=== PATIENT | female | born 1985 | race Caucasian/White ===

== ENCOUNTER 2017-05-02 13:06 | Emergency (ER) | payer OTHER ==
[~2017-05-02] VITALS: Ht 157.5 cm; Wt 40.6 kg
[2017-05-02] MEDS ORDERED: ZOFR4TAB3 PO (13:18)
[2017-05-02] MEDS ORDERED: PROMETHAZINE INJ 25 MG/ML VIAL (J2550) IV ONE (13:45)
[2017-05-02] MEDS ORDERED: NS 1,000 ML IV ONE (13:45)
[2017-05-02 14:21] LABS: BASO % 0.2 % (0.0-1.0); EOS # 0.1 K/mm3 (0.0-0.50); EOS % 1.2 % (0.0-3.0); LARGE UNSTAINED CELL # 0.1 K/mm3 (0.0-0.4); LYMPH # 1.1 K/mm3 (1.5-4.5); LYMPH % 16.3 % (24.0-44.0); MEAN CORPUSCULAR HEMOGLOBIN 30.7 pg (27.0-33.0); MEAN CORPUSCULAR HGB CONC 35.7 g/dl (32.0-36.5); MONO # 0.5 K/mm3 (0.0-0.8); MONO % 7.8 % (0.0-5.0); NEUTROPHILS # 4.5 K/mm3 (1.8-7.7); NEUTROPHILS % 72.5 % (36.0-66.0); PLATELET COUNT, AUTOMATED 214 k/mm3 (150-450); RED CELL DISTRIBUTION WIDTH 12.2 % (11.5-14.5); WHITE BLOOD COUNT 6.2 K/mm3 (4.0-10.0)
[2017-05-02 14:51] LABS: ALBUMIN 3.8 GM/DL (3.2-5.2); ALBUMIN/GLOBULIN RATIO 1.03 (1.00-1.93); ALKALINE PHOSPHATASE 67 U/L (45-117); AMYLASE 56 U/L (25-115); ANION GAP 7 MEQ/L (8-16); AST/SGOT 14 U/L (15-37); BILIRUBIN,DIRECT 0.1 MG/DL (0.0-0.2); BILIRUBIN,TOTAL 0.4 MG/DL (0.2-1.0); BLOOD UREA NITROGEN 7 MG/DL (7-18); CALCIUM LEVEL 9.2 MG/DL (8.5-10.1); CARBON DIOXIDE LEVEL 27 MEQ/L (21-32); CHLORIDE LEVEL 103 MEQ/L (98-107); CREATININE FOR GFR 0.65 MG/DL (0.55-1.02); GLOMERULAR FILTRATION RATE > 60.0 (>60); GLUCOSE, FASTING 95 MG/DL (70-105); POTASSIUM SERUM 3.9 MEQ/L (3.5-5.1); SODIUM LEVEL 137 MEQ/L (136-145); TOTAL PROTEIN 7.5 GM/DL (6.4-8.2)
[2017-05-02 15:16] LABS: ALT/SGPT 20 U/L (12-78)
[2017-05-02] MEDS ORDERED: NS 500 ML IV ONE (15:30)
[2017-05-02] MEDS ORDERED: CVS25TAB16 PO (16:59)
[2017-05-02] MEDS ORDERED: PROM25TA PO (16:59)
[2017-05-02] MEDS ORDERED: PYRI25TA3 PO (16:59)
[2017-05-02 17:10] VITALS: BP 93/55
[2017-05-03] MEDS ORDERED: PHEN1SUP6 PR (18:13)
[2017-05-03] MEDS ORDERED: ZOFR4TAB3 PO (18:18)
== END 2017-05-02 17:12 | disposition home or self-care (01) ==
LOC: M ED 13:06
DX: O21.0 Mild hyperemesis gravidarum (principal); Z79.899 Other long term (current) drug therapy; Z91.011 Allergy to milk products; Z91.018 Allergy to other foods

== ENCOUNTER 2017-05-03 15:02 | Emergency (ER) | payer OTHER ==
[~2017-05-03] VITALS: Ht 157.5 cm; Wt 40.0 kg
[~2017-05-03 15:02] MED LIST: CVS25TAB16 PO; PROM25TA PO; PYRI25TA3 PO; ZOFR4TAB3 PO
[2017-05-03] MEDS ORDERED: NS 1,000 ML IV ONE (15:45)
[2017-05-03 15:56] LABS: BASO % 0.3 % (0.0-1.0); EOS # 0.1 K/mm3 (0.0-0.50); EOS % 1.6 % (0.0-3.0); LARGE UNSTAINED CELL # 0.1 K/mm3 (0.0-0.4); LARGE UNSTAINED CELL % 2.1 % (0.0-4.0); LYMPH # 1.6 K/mm3 (1.5-4.5); LYMPH % 22.3 % (24.0-44.0); MEAN CORPUSCULAR HEMOGLOBIN 30.1 pg (27.0-33.0); MEAN CORPUSCULAR HGB CONC 34.9 g/dl (32.0-36.5); MEAN CORPUSCULAR VOLUME 86.2 fl (80.0-96.0); MONO # 0.5 K/mm3 (0.0-0.8); MONO % 7.1 % (0.0-5.0); NEUTROPHILS # 4.5 K/mm3 (1.8-7.7); NEUTROPHILS % 66.6 % (36.0-66.0); PLATELET COUNT, AUTOMATED 203 k/mm3 (150-450); RED CELL DISTRIBUTION WIDTH 12.3 % (11.5-14.5); WHITE BLOOD COUNT 6.7 K/mm3 (4.0-10.0)
[2017-05-03] MEDS ORDERED: MULTIVITAMIN -ADULT INJECTION 10 ML, THIAMINE INJection 100 MG, FOLIC ACID 1 MG in NS 1... IV ONE (16:00)
[2017-05-03] MEDS ORDERED: PROMETHAZINE 25 MG SUPP PR ONE (16:00)
[2017-05-03 16:22] LABS: ALBUMIN 3.7 GM/DL (3.2-5.2); ALBUMIN/GLOBULIN RATIO 1.12 (1.00-1.93); ALKALINE PHOSPHATASE 59 U/L (45-117); ALT/SGPT 20 U/L (12-78); ANION GAP 7 MEQ/L (8-16); AST/SGOT 19 U/L (15-37); BILIRUBIN,DIRECT 0.1 MG/DL (0.0-0.2); BILIRUBIN,TOTAL 0.4 MG/DL (0.2-1.0); BLOOD UREA NITROGEN 7 MG/DL (7-18); CALCIUM LEVEL 9.2 MG/DL (8.5-10.1); CARBON DIOXIDE LEVEL 25 MEQ/L (21-32); CHLORIDE LEVEL 106 MEQ/L (98-107); GLOMERULAR FILTRATION RATE > 60.0 (>60); GLUCOSE, FASTING 85 MG/DL (70-105); POTASSIUM SERUM 4.3 MEQ/L (3.5-5.1); SODIUM LEVEL 138 MEQ/L (136-145)
--- NOTE | 2017-05-03 16:28 | REP ---
First trimester obstetric ultrasound for pelvic pain, emergency room request: There are no comparison studies. The study ius performed with transabdominal ultrasound imaging. The bladder is poorly distended. There is an intrauterine gestational sac with a pole. There is cardiac activity. heart rate is 162 beats per minute. The pole crown-rump length is 1.1 cm corresponding to 7 weeks 1 day gestational age. The LI is 12/19/2017. There is no subchorionic hematoma. The maternal adnexa and cul-de-sac are unremarkable. Signed by Jorje Nuñez MD 05/03/2017 04:20 P
[2017-05-03] MEDS ORDERED: PHEN1SUP6 PR (18:13)
[2017-05-03] MEDS ORDERED: ONDANSETRON 4 MG ORAL DISINTEGRATING TAB (S0181) PO ONE (18:15)
[2017-05-03] MEDS ORDERED: ONDANSETRON 4MG/2ML VIAL (J2405) IV ONE (18:15)
[2017-05-03] MEDS ORDERED: ZOFR4TAB3 PO (18:18)
[2017-05-03 18:27] VITALS: BP 108/71
== END 2017-05-03 18:29 | disposition home or self-care (01) ==
LOC: M ED 15:02
DX: O21.0 Mild hyperemesis gravidarum (principal); Z3A.01 Less than 8 weeks gestation of pregnancy; Z79.899 Other long term (current) drug therapy; Z91.018 Allergy to other foods; Z91.011 Allergy to milk products
CPT/HCPCS: 76801; 80048; 80076; 81001; 85025; 86901; 96361; 96374; 96375; 99283; J2405; J3411

== ENCOUNTER 2017-05-05 09:39 | Inpatient (IN) | payer OTHER ==
[~2017-05-05] VITALS: Ht 157.5 cm; Wt 40.4 kg
[~2017-05-05 09:39] MED LIST changes: +PHEN1SUP6 PR
[2017-05-05 10:26] LABS: BASO % 0.4 % (0.0-1.0); EOS % 0.2 % (0.0-3.0); LARGE UNSTAINED CELL # 0.2 K/mm3 (0.0-0.4); LARGE UNSTAINED CELL % 2.3 % (0.0-4.0); LYMPH # 1.5 K/mm3 (1.5-4.5); LYMPH % 20.1 % (24.0-44.0); MEAN CORPUSCULAR HEMOGLOBIN 30.7 pg (27.0-33.0); MEAN CORPUSCULAR HGB CONC 35.8 g/dl (32.0-36.5); MEAN CORPUSCULAR VOLUME 85.8 fl (80.0-96.0); MONO # 0.4 K/mm3 (0.0-0.8); MONO % 5.1 % (0.0-5.0); NEUTROPHILS # 5.4 K/mm3 (1.8-7.7); NEUTROPHILS % 71.8 % (36.0-66.0); PLATELET COUNT, AUTOMATED 231 k/mm3 (150-450); RED CELL DISTRIBUTION WIDTH 11.7 % (11.5-14.5); WHITE BLOOD COUNT 7.6 K/mm3 (4.0-10.0)
[2017-05-05] MEDS ORDERED: TRIMETHOBENZAMIDE HCL INJ 200 MG/2 ML VIAL (J3250) IM ONE (10:30)
[2017-05-05] MEDS ORDERED: NS 1,000 ML IV ONE ×2 (10:30→14:15)
[2017-05-05 10:41] LABS: ALBUMIN 3.9 GM/DL (3.2-5.2); ALBUMIN/GLOBULIN RATIO 1.15 (1.00-1.93); ALKALINE PHOSPHATASE 62 U/L (45-117); ALT/SGPT 20 U/L (12-78); AMYLASE 115 U/L (25-115); ANION GAP 15 MEQ/L (8-16); AST/SGOT 16 U/L (15-37); BILIRUBIN,DIRECT 0.2 MG/DL (0.0-0.2); BILIRUBIN,TOTAL 0.6 MG/DL (0.2-1.0); BLOOD UREA NITROGEN 8 MG/DL (7-18); CALCIUM LEVEL 9.1 MG/DL (8.5-10.1); CARBON DIOXIDE LEVEL 16 MEQ/L (21-32); CHLORIDE LEVEL 103 MEQ/L (98-107); CREATININE FOR GFR 0.51 MG/DL (0.55-1.02); GLOMERULAR FILTRATION RATE > 60.0 (>60); GLUCOSE, FASTING 74 MG/DL (70-105); SODIUM LEVEL 134 MEQ/L (136-145); TOTAL PROTEIN 7.3 GM/DL (6.4-8.2)
[2017-05-05] MEDS ORDERED: PROCHLORPERAZINE 10 MG/2 ML VIAL (J0780) IM ONE (12:30)
[2017-05-05] MEDS ORDERED: ONDA4TAB6 PO (13:37)
[2017-05-05] MEDS ORDERED: PHEN1SUP6 PR (13:37)
[2017-05-05] MEDS ORDERED: ACETAMINOPHEN TAB 650MG DOSE (2X325MG) PO PRN (14:00)
--- NOTE | 2017-05-05 14:14 | HPEPDOC ---
Medical History and Physical Date of Admission History and Physical PRIMARY CARE PROVIDER: ATTENDING: Dr. Pina CHIEF COMPLAINT: [nausea/vomiting] HISTORY OF PRESENT ILLNESS: [32 yo F , hx of 2 miscarriages, has been in and out of the ED with nausea and vomiting, sent home on oral phenegran and zofran however has not been able to tolerate any po intake, patient returns today with NBNB vomiting, along with severe nausea, patient denies abdominal pain, no diarrhea or constipation, denies fever/chills, she reports having similar issue with previous and was admitted for 2 weeks. in the ED was noted to have Elevated Lipase in 700s which changed from prior labs ] PAST MEDICAL HISTORY: none PAST SURGICAL HISTORY: none SOCIAL HISTORY: Marital status: [, with twins nonsmoker/no ETOH or drugs]. FAMILY HISTORY: denies ALLERGIES: Please see below. REVIEW OF SYSTEMS: all 10 systems negative except for mentioned in HPI HOME MEDICATIONS: Please see below. PHYSICAL EXAMINATION: VITAL SIGNS: Vital Sign - Last 24 Hours 05/05/17 05/05/17 05/05/17 09:40 10:03 13:02 Temp 97.9 98.7 Pulse 108 94 Resp 18 18 B/P (MAP) 93/61 (72) 112/67 (82) Pulse Ox 99 99 O2 Delivery Room Air Room Air GENERAL APPEARANCE: [mild distress from nausea]. HEENT: [moist mucus membranes]. CARDIOVASCULAR: [s1 s2 tachy regular]. LUNGS: [cta]. ABDOMEN: [soft, nt nd, +BS]. EXTREMITIES: [no edema]. NEUROLOGICAL: [no focal deficits]. PSYCHIATRIC: [AAO3]. LABORATORY DATA: See below. IMAGING: ultrasound First trimester obstetric ultrasound for pelvic pain, emergency room request: There are no comparison studies. The study ius performed with transabdominal ultrasound imaging. The bladder is poorly distended. There is an intrauterine gestational sac with a pole. There is cardiac activity. heart rate is 162 beats per minute. The pole crown-rump length is 1.1 cm corresponding to 7 weeks 1 day gestational age. The LI is 12/19/2017. There is no subchorionic hematoma. The maternal adnexa and cul-de-sac are unremarkable. MICROBIOLOGY: Please see below. ASSESSMENT: [32 yo F , hx of 2 miscarriages, has been in and out of the ED with nausea and vomiting po intolerance. . 1. Hyperemesis gravidarum- start compazine IV, Zofran and Benadryl, monitor lytes, 2. acute pancreatitis elevated lipase likely due to vomiting, will aggressively hydrate given 1 L bolus in ED will start maintenance fluids, monitor UO, will obtain RUQ sono to assess for gallstones, DVT px with Lovenox Vital Signs Vital Signs Date Time Temp Pulse Resp B/P (MAP) Pulse Ox O2 Delivery O2 Flow Rate FiO2 05/05/17 13:02 98.7 94 18 112/67 (82) 99 Room Air Laboratory Data Labs 24H Laboratory Tests 2 05/05/17 10:02: White Blood Count 7.6, Red Blood Count 4.90, Hemoglobin 15.1, Hematocrit 42.0, Mean Corpuscular Volume 85.8, Mean Corpuscular Hemoglobin 30.7, Mean Corpuscular Hemoglobin Concent 35.8, Red Cell Distribution Width 11.7, Platelet Count 231, Neutrophils (%) (Auto) 71.8H, Lymphocytes (%) (Auto) 20.1L, Monocytes (%) (Auto) 5.1H, Eosinophils (%) (Auto) 0.2, Basophils (%) (Auto) 0.4 , Neutrophils # (Auto) 5.4, Lymphocytes # (Auto) 1.5, Monocytes # (Auto) 0.4, Eosinophils # (Auto) 0.0, Basophils # (Auto) 0.0, Large Unclassified Cells % 2.3 , Large Unclassified Cells # 0.2, Anion Gap 15, Glomerular Filtration Rate > 60.0, Calcium Level 9.1, Aspartate Amino Transf (AST/SGOT) 16, Alanine Aminotransferase (ALT/SGPT) 20, Alkaline Phosphatase 62, Total Bilirubin 0.6, Direct Bilirubin 0.2, Total Protein 7.3, Albumin 3.9, Albumin/Globulin Ratio 1.15, Amylase Level 115, Lipase 710H 05/05/17 11:23: Urine Appearance CLEAR, Urine Color YELLOW, Urine pH 6.0, Urine Specific Osborne 1.025, Urine Protein NEGATIVE, Urine Glucose (UA) NEGATIVE, Urine Ketones 2+H, Urine Urobilinogen 0.2, Urine Bilirubin NEGATIVE, Urine Leukocyte Esterase NEGATIVE, Urine Blood NEGATIVE, Urine Nitrite NEGATIVE, Urine WBC (Auto ) 3, Urine RBC (Auto) 1, Urine Hyaline Casts (Auto) 0, Urine Bacteria (Auto) NEGATIVE, Urine Squamous Epithelial Cells 5, Urine Mucus (Auto) SMALL, Urine Sperm (Auto) CBC/BMP Laboratory Tests 05/05/17 10:02 Red Blood Count 4.90, Mean Corpuscular Volume 85.8, Mean Corpuscular Hemoglobin 30.7, Mean Corpuscular Hemoglobin Concent 35.8, Red Cell Distribution Width 11.7 , Neutrophils (%) (Auto) 71.8 H, Lymphocytes (%) (Auto) 20.1 L, Monocytes (%) ( Auto) 5.1 H, Eosinophils (%) (Auto) 0.2, Basophils (%) (Auto) 0.4, Neutrophils # (Auto) 5.4, Lymphocytes # (Auto) 1.5, Monocytes # (Auto) 0.4, Eosinophils # ( Auto) 0.0, Basophils # (Auto) 0.0 Microbiology Microbiology 05/05/17 Urine Culture, Received Pending Home Medications Scheduled PRN Ondansetron (Ondansetron Odt) 4 Mg Tab, 4 MG PO Q4H PRN for NAUSEA OR VOMITING Promethazine HCl (Phenergan) 25 Mg Sup, 25 MG OH Q8H PRN for NAUSEA OR VOMITING Allergies Coded Allergies: Metoclopramide (Verified Allergy, Intermediate, respiratory, 05/02/17) Gluten Flour (Unverified Allergy, Unknown, 05/05/17) Lactose (Unverified Allergy, Unknown, 05/05/17) CLIFFORD PINA MD May 05, 2017 14:14
[2017-05-05 15:00] VITALS: BP 102/62
[2017-05-05] MEDS: diphenhydrAMINE INJ 50MG/ML VIAL (J1200) IV PRN ×2 (16:35→22:59)
[2017-05-05] MEDS: D5W/0.9% SODIUM CHLORIDE 1,000 ML IV SCH (16:36)
[2017-05-05] MEDS: ONDANSETRON 4MG/2ML VIAL (J2405) IV PRN (18:06)
[2017-05-05 20:00] VITALS: BP 113/69
--- NOTE | 2017-05-05 20:14 | REP ---
ABDOMINAL ULTRASOUND: Real-time sonographic evaluation of the abdomen is performed. The gallbladder demonstrates no evidence of intraluminal sludge or calculi, wall thickening or pericholecystic fluid. There is no intrahepatic or extrahepatic biliary dilatation, common bile duct measuring 3 mm in diameter. Liver and pancreas demonstrate homogenous echotexture with no gross mass. Spleen is normal in size with intrinsic abnormality measuring 9.7 cm in length. The kidneys are normal in size and echotexture, right kidney measuring 10.2 x 4.3 x 3.4 cm and left kidney 10.6 x 4.8 x 3.9 cm. There is a small extrarenal pelvis on the left without hydronephrosis, renal mass or nephrolithiasis. Abdominal aorta is normal in caliber, maximum AP diameter approximately 1.9 cm, mid-aspect 1.4 cm and distally 0.8 cm just above the bifurcation. No ascites is seen. IMPRESSION: Negative abdominal ultrasound as discussed above. Signed by Jorje Vegas MD 05/06/2017 01:05 P
[2017-05-05] MEDS: PROCHLORPERAZINE 10 MG/2 ML VIAL (J0780) IV PRN (21:22)
[2017-05-06] VITALS: BP 100/59
[2017-05-06] MEDS: D5W/0.9% SODIUM CHLORIDE 1,000 ML IV SCH ×4 (00:49→23:16)
[2017-05-06] MEDS: ONDANSETRON 4MG/2ML VIAL (J2405) IV PRN ×4 (00:55→23:16)
[2017-05-06] MEDS: PROCHLORPERAZINE 10 MG/2 ML VIAL (J0780) IV PRN ×2 (06:33→16:14)
[2017-05-06 07:22] LABS: ALBUMIN 2.6 GM/DL (3.2-5.2); ALKALINE PHOSPHATASE 43 U/L (45-117); ALT/SGPT 15 U/L (12-78); ANION GAP 7 MEQ/L (8-16); AST/SGOT 10 U/L (15-37); BILIRUBIN,TOTAL 0.3 MG/DL (0.2-1.0); BLOOD UREA NITROGEN 2 MG/DL (7-18); CARBON DIOXIDE LEVEL 20 MEQ/L (21-32); CHLORIDE LEVEL 114 MEQ/L (98-107); CREATININE FOR GFR 0.35 MG/DL (0.55-1.02); GLOMERULAR FILTRATION RATE > 60.0 (>60); GLUCOSE, FASTING 107 MG/DL (70-105); MAGNESIUM LEVEL 1.7 MG/DL (1.8-2.4); POTASSIUM SERUM 3.3 MEQ/L (3.5-5.1); SODIUM LEVEL 141 MEQ/L (136-145); TOTAL PROTEIN 5.5 GM/DL (6.4-8.2)
[2017-05-06 08:00] VITALS: BP 101/56
[2017-05-06] MEDS: ENOXAPARIN 30 MG/0.3 ML SYR (J1650) SC SCH (09:05)
[2017-05-06 16:00] VITALS: BP 102/58
[2017-05-06 20:00] VITALS: BP 109/70
[2017-05-06] MEDS: diphenhydrAMINE INJ 50MG/ML VIAL (J1200) IV PRN (21:34)
[2017-05-07] VITALS: BP 97/60
[2017-05-07] MEDS: PROCHLORPERAZINE 10 MG/2 ML VIAL (J0780) IV PRN ×2 (00:30→08:52)
[2017-05-07] MEDS: D5W/0.9% SODIUM CHLORIDE 1,000 ML IV SCH (06:16)
[2017-05-07] MEDS: ONDANSETRON 4MG/2ML VIAL (J2405) IV PRN (06:17)
[2017-05-07 07:53] LABS: ALBUMIN 2.5 GM/DL (3.2-5.2); ALKALINE PHOSPHATASE 39 U/L (45-117); ALT/SGPT 14 U/L (12-78); ANION GAP 7 MEQ/L (8-16); AST/SGOT 7 U/L (15-37); BILIRUBIN,TOTAL 0.4 MG/DL (0.2-1.0); BLOOD UREA NITROGEN 2 MG/DL (7-18); CALCIUM LEVEL 7.6 MG/DL (8.5-10.1); CARBON DIOXIDE LEVEL 24 MEQ/L (21-32); CHLORIDE LEVEL 108 MEQ/L (98-107); CREATININE FOR GFR 0.33 MG/DL (0.55-1.02); GLOMERULAR FILTRATION RATE > 60.0 (>60); GLUCOSE, FASTING 93 MG/DL (70-105); MAGNESIUM LEVEL 1.8 MG/DL (1.8-2.4); POTASSIUM SERUM 3.2 MEQ/L (3.5-5.1); SODIUM LEVEL 139 MEQ/L (136-145)
[2017-05-07 08:00] VITALS: BP 103/67
[2017-05-07] MEDS: ENOXAPARIN 30 MG/0.3 ML SYR (J1650) SC SCH (08:13)
[2017-05-07] MEDS ORDERED: POTASSIUM CHLORIDE INJ 40 MEQ in D5W/0.9% SODIUM CHLORIDE 1,000 ML IV SCH (09:00)
[2017-05-07] MEDS ORDERED: PROC5TA PO (10:31)
[2017-05-07] MEDS: KCL 10MEQ IN 100ML SWI (KRUN) 10 MEQ in APPROPRIATE DILUENT 1 EA IV SCH ×4 (10:43→11:50)
[2017-05-07] MEDS ORDERED: PROCHLORPERAZINE 5 MG TAB (S0183) PO SCH (12:00)
[2017-05-07] MEDS ORDERED: ONDANSETRON 4 MG TAB (S0181) PO SCH (12:00)
--- NOTE | 2017-05-09 17:19 | DSES ---
DATE OF ADMISSION: 05/05/2017 DATE OF DISCHARGE: 05/07/2017 PRIMARY CARE PROVIDER: Thomasdorota Goins DISCHARGE DIAGNOSES: Hyperemesis gravidarum. Elevated lipase possibly due to excessive vomiting. Gastritis/duodenitis. DISCHARGE MEDICATIONS: - Prochlorperazine 5 mg by mouth before food - Continue on Odansetron 4 mg by mouth every 4 hours as needed nausea or vomiting HOSPITAL COURSE: This is a 32-year-old female who is 8 weeks presented to the hospital with intractable nausea and vomiting. The patient has been taking Phenergan and Zofran at home without any relief. The patient has been unable to keep much food down. She found to have elevated lipase and was admitted for hyperemesis gravidarum, possible pancreatitis. The patient had an ultrasound of the abdomen done which did not show any gallbladder abnormality or biliary duct abnormality. Did not show any pancreatic abnormality. It was felt that the elevated lipase was possibly due to excessive vomiting and possibly some gastritis or duodenitis associated. The patient was started on Compazine and Zofran was continued. The patient responded well to Compazine with resolution of her vomiting and nausea. On the day of discharge, the patient had stable vitals. Did not have any complaints and was functioning at her baseline. PHYSICAL EXAMINATION: VITAL SIGNS: Temperature 98.6, pulse 75, respiratory rate 18, blood pressure 103/67, pulse oximetry 97% on room air. GENERAL: The patient awake, alert, oriented times three. Sitting up in bed, in no acute distress. HEENT: Normocephalic, atraumatic. Moist mucous membranes. Anicteric eyes. CHEST: Clear to auscultation. CARDIOVASCULAR: S1, S2, regular. No rub, murmur or gallop. ABDOMEN: Soft, nontender. Bowel sounds present. EXTREMITIES: No edema. LABORATORY DATA: WBC 7.6, hemoglobin 15.1, platelet 231. Sodium 139, potassium 3.2, replaced. Chloride 108, bicarbonate 24, BUN 2, creatinine 0.3. Glucose 93, calcium 10.6, magnesium 1.8. Lipase 1265. Urinalysis: Clean. DISPOSITION: The patient is discharged home in stable condition. DISCHARGE INSTRUCTIONS: The patient to followup with primary care provider within a week. The patient advised to make an appointment with her Ob-Gynecology at the earliest. Regular diet. Activity as tolerated.
== END 2017-05-07 14:43 | disposition home or self-care (01) | DRG 781 ==
LOC: M ED 10:02 → M ED INP 13:54 → M PED 14:55
PROVIDERS: ADMIT Internal Medicine; ATTEND Internal Medicine
DX: O21.0 Mild hyperemesis gravidarum (principal); K85.90 Acute pancreatitis without necrosis or infection, unspecified; O26.611 Liver and biliary tract disorders in pregnancy, first trimester; Z88.8 Allergy status to other drugs, medicaments and biological substances; Z79.899 Other long term (current) drug therapy

== ENCOUNTER 2017-05-08 19:42 | Emergency (ER) | payer OTHER ==
[~2017-05-08] VITALS: Ht 157.5 cm; Wt 41.3 kg
[~2017-05-08 19:42] MED LIST changes: +ONDA4TAB6 PO; +PROC5TA PO
[2017-05-08] MEDS ORDERED: diphenhydrAMINE INJ 50MG/ML VIAL (J1200) IV STA (19:58)
[2017-05-08 20:36] VITALS: BP 107/66
== END 2017-05-08 20:38 | disposition home or self-care (01) ==
LOC: M ED 19:42
DX: G24.02 Drug induced acute dystonia (principal); Z3A.00 Weeks of gestation of pregnancy not specified; Z91.011 Allergy to milk products; Z91.018 Allergy to other foods
CPT/HCPCS: 96374; 99283; J1200

== ENCOUNTER 2017-05-09 14:44 | Inpatient (IN) | payer OTHER ==
[~2017-05-09] VITALS: Ht 157.5 cm; Wt 41.1 kg
[2017-05-09 15:59] LABS: MEAN CORPUSCULAR HGB CONC 34.9 g/dl (32.0-36.5); MEAN CORPUSCULAR VOLUME 85.9 fl (80.0-96.0); RED CELL DISTRIBUTION WIDTH 12.4 % (11.5-14.5); WHITE BLOOD COUNT 8.7 K/mm3 (4.0-10.0)
[2017-05-09] MEDS: PYRIDOXINE 50 MG TAB PO SCH ×2 (16:00→21:00)
[2017-05-09 16:01] VITALS: BP 103/70
[2017-05-09 16:26] LABS: ALBUMIN 3.9 GM/DL (3.2-5.2); ALBUMIN/GLOBULIN RATIO 1.11 (1.00-1.93); ALKALINE PHOSPHATASE 58 U/L (45-117); ALT/SGPT 19 U/L (12-78); ANION GAP 9 MEQ/L (8-16); AST/SGOT 11 U/L (15-37); BILIRUBIN,TOTAL 0.4 MG/DL (0.2-1.0); BLOOD UREA NITROGEN 5 MG/DL (7-18); CALCIUM LEVEL 9.5 MG/DL (8.5-10.1); CARBON DIOXIDE LEVEL 26 MEQ/L (21-32); CHLORIDE LEVEL 104 MEQ/L (98-107); CREATININE FOR GFR 0.47 MG/DL (0.55-1.02); GLOMERULAR FILTRATION RATE > 60.0 (>60); GLUCOSE, FASTING 85 MG/DL (70-105); POTASSIUM SERUM 3.8 MEQ/L (3.5-5.1); SODIUM LEVEL 139 MEQ/L (136-145); TOTAL PROTEIN 7.4 GM/DL (6.4-8.2)
[2017-05-09] MEDS: ONDANSETRON 4MG/2ML VIAL (J2405) IV SCH ×2 (16:52→23:12)
[2017-05-09] MEDS: PROMETHAZINE 12.5 MG SUPP PR SCH ×2 (16:53→21:53)
--- NOTE | 2017-05-09 17:04 | HPEPDOC ---
Medical History and Physical Date of Admission May 09, 2017 at 15:21 History and Physical ATTENDING: Jorje Gil MD CHIEF COMPLAINT: hyperemesis gravidarum HISTORY OF PRESENT ILLNESS: 32 yo presented to clinic for f/u from allergic reaction in ED. She was d/c from the hospital on Saturday after 3 days as an in-patient for hyperemesis under another practice. She has been unable to keep any food or fluid down. PAST MEDICAL HISTORY: DENIES PAST SURGICAL HISTORY: C-S SOCIAL HISTORY: Marital status: Children: 2- twin 2 yo Employment: [employer] Tobacco use:denies ETOH: denies Illicit drug use: denies IV drug use: none Other relevant social factors: Spouse is AD. There is no support system here. Mother is coming to in 10 days to help with her children ALLERGIES: Please see below. REVIEW OF SYSTEMS: CONSTITUTIONAL: + n/v CARDIOVASCULAR: no hx RESPIRATORY: no hx GASTROINTESTINAL: n/v GENITOURINARY: no urinary sx SKIN: no sx PSYCHIATRIC: no sx HOME MEDICATIONS: zofran PHYSICAL EXAMINATION: VITAL SIGNS: WNL, afebrile GENERAL APPEARANCE: . HEENT: none CARDIOVASCULAR: RRR, no m/r/g LUNGS: CTA ABDOMEN: BS active x 4, abdomen soft, non-tender to palpation LABORATORY DATA: See below. ASSESSMENT: 32 yo with hyperemesis gravidarum . PLAN: Admit and orient, IV hydration, IV zofran, [place] phenergan, clear liquid diet, advance to regular diet Vital Signs Vital Signs Date Time Temp Pulse Resp B/P (MAP) Pulse Ox O2 Delivery O2 Flow Rate FiO2 05/09/17 16:01 97.7 65 16 103/70 (81) Laboratory Data Labs 24H Laboratory Tests 2 05/09/17 15:46: Anion Gap 9, Glomerular Filtration Rate > 60.0, Blood Urea Nitrogen 5#L, Creatinine 0.47L, Sodium Level 139, Potassium Level 3.8, Chloride Level 104, Carbon Dioxide Level 26, Calcium Level 9.5#, Aspartate Amino Transf (AST/SGOT) 11L, Alanine Aminotransferase (ALT/SGPT) 19, Alkaline Phosphatase 58, Total Bilirubin 0.4, Total Protein 7.4#, Albumin 3.9#, Albumin/Globulin Ratio 1.11 CBC/BMP Laboratory Tests 05/09/17 15:46 Red Blood Count 4.60, Mean Corpuscular Volume 85.9, Mean Corpuscular Hemoglobin 30.0, Mean Corpuscular Hemoglobin Concent 34.9, Red Cell Distribution Width 12.4 , Calcium Level 9.5 #, Aspartate Amino Transf (AST/SGOT) 11 L, Alanine Aminotransferase (ALT/SGPT) 19, Alkaline Phosphatase 58, Total Bilirubin 0.4, Total Protein 7.4 #, Albumin 3.9 # Home Medications Scheduled Prochlorperazine (Prochlorperazine Maleate) 5 Mg Tab, 5 MG PO AC Scheduled PRN Ondansetron (Ondansetron Odt) 4 Mg Tab, 4 MG PO Q4H PRN for NAUSEA OR VOMITING Allergies Coded Allergies: Metoclopramide (Verified Allergy, Intermediate, respiratory, 05/02/17) Gluten Flour (Verified Allergy, Unknown, 05/08/17) Lactose (Verified Allergy, Unknown, 05/08/17) TOM BRANTLEY CNM May 09, 2017 17:04
[2017-05-09] MEDS: D5W/LR 1,000 ML IV SCH ×2 (17:07→23:12)
[2017-05-09] MEDS: MULTIVITAMIN -ADULT INJECTION 10 ML, THIAMINE INJection 100 MG, FOLIC ACID 1 MG in NS 1... IV SCH (17:07)
[2017-05-09 18:01] VITALS: BP 103/66
[2017-05-09 22:00] VITALS: BP 112/69
[2017-05-10] MEDS: PROMETHAZINE 12.5 MG SUPP PR SCH ×2 (03:57→09:20)
[2017-05-10] MEDS: D5W/LR 1,000 ML IV SCH ×2 (04:00→15:12)
[2017-05-10 05:51] VITALS: BP 92/53
[2017-05-10] MEDS: ONDANSETRON 4MG/2ML VIAL (J2405) IV SCH ×2 (06:38→15:00)
--- NOTE | 2017-05-10 06:58 | IPNPDOC ---
Text Note Date of Service The patient was seen on 05/10/17. NOTE 32 y/o at ~7 wks gestation with bounce back admission for hyperemesis after d/c 3 days ago, unable to tolerate any food or fluid at home. Significant wt loss and malaise noted. States threw up the jello and broth she ingested yest early evening, then dry-heaved and threw up 6-7 x overnight. This AM has kept down a jello cup down for 1 hr thus far. PHYSICAL EXAMINATION: VITAL SIGNS: WNL, afebrile GENERAL APPEARANCE: Slightly better than yest afternoon HEENT: none Mucous membranes: Improved CARDIOVASCULAR: RRR, no m/r/g LUNGS: CTAB ABDOMEN: BS active x 4, abdomen soft, non-tender to palpation LABORATORY DATA: See below 1600 notable labs yesterday: HCT 39.6, Plt 239, WBC 8.7 K 3.8 Ca 9.5 Nl LFT's and Nl albumin UA neg except for 2+ ketones ASSESSMENT: 32 yo with hyperemesis gravidarum PLAN: IV hydration with D5LR 125/hr, daily Banana Bag, IV zofran which we will hopefully transition to PO Zofran, [place] phenergan here and at home, clear liquid diet with plan to advance hopefully slowly to regular diet. Needs to be discharged by SUN. to berry picker d/c meds at [facility] today (not open on weekend). SBAR to Dr Yanez at 0730. Sessions Criss BUCKLEY, I+O Criss THURSTON, I+O Laboratory Tests 05/09/17 15:46 Red Blood Count 4.60, Mean Corpuscular Volume 85.9, Mean Corpuscular Hemoglobin 30.0, Mean Corpuscular Hemoglobin Concent 34.9, Red Cell Distribution Width 12.4 , Calcium Level 9.5 #, Aspartate Amino Transf (AST/SGOT) 11 L, Alanine Aminotransferase (ALT/SGPT) 19, Alkaline Phosphatase 58, Total Bilirubin 0.4, Total Protein 7.4 #, Albumin 3.9 # Vital Signs Date Time Temp Pulse Resp B/P (MAP) Pulse Ox O2 Delivery O2 Flow Rate FiO2 05/10/17 05:51 99.2 62 16 92/53 (66) I&O- Last 24 Hours up to 6 AM 05/10/17 06:00 Intake Total 2499 ml Output Total 900 ml Balance 1599 ml SESSIONS,LG Carbajal MD May 10, 2017 06:58
[2017-05-10 07:05] LABS: ALKALINE PHOSPHATASE 38 U/L (45-117); ALT/SGPT 12 U/L (12-78); ANION GAP 11 MEQ/L (8-16); AST/SGOT 6 U/L (15-37); BILIRUBIN,TOTAL 0.4 MG/DL (0.2-1.0); BLOOD UREA NITROGEN 3 MG/DL (7-18); CALCIUM LEVEL 8.1 MG/DL (8.5-10.1); CARBON DIOXIDE LEVEL 25 MEQ/L (21-32); CHLORIDE LEVEL 106 MEQ/L (98-107); CREATININE FOR GFR 0.35 MG/DL (0.55-1.02); GLOMERULAR FILTRATION RATE > 60.0 (>60); GLUCOSE, FASTING 83 MG/DL (70-105); POTASSIUM SERUM 3.4 MEQ/L (3.5-5.1); SODIUM LEVEL 142 MEQ/L (136-145)
[2017-05-10 07:22] LABS: ALBUMIN 2.7 GM/DL (3.2-5.2); TOTAL PROTEIN 5.4 GM/DL (6.4-8.2)
[2017-05-10] MEDS ORDERED: THIAMINE HCL 200 MG/2 ML VIAL (J3411) IV SCH (09:00)
[2017-05-10] MEDS: PYRIDOXINE 50 MG TAB PO SCH ×4 (09:20→21:21)
[2017-05-10 14:19] VITALS: BP 108/56
[2017-05-10] MEDS: PROMETHAZINE 25 MG SUPP PR SCH ×2 (16:00→21:21)
[2017-05-10] MEDS: MULTIVITAMIN -ADULT INJECTION 10 ML, THIAMINE INJection 100 MG, FOLIC ACID 1 MG in NS 1... IV SCH (17:00)
[2017-05-11] MEDS: ONDANSETRON 4MG/2ML VIAL (J2405) IV SCH ×4 (00:13→22:14)
[2017-05-11 02:00] VITALS: BP_SYST 56; BP_SYST 95; BP_DIAS 56
[2017-05-11] MEDS: D5W/LR 1,000 ML IV SCH ×3 (04:13→12:16)
[2017-05-11] MEDS: PROMETHAZINE 25 MG SUPP PR SCH ×4 (04:13→22:14)
[2017-05-11 06:00] VITALS: BP 94/55
[2017-05-11 06:47] LABS: ALBUMIN 2.7 GM/DL (3.2-5.2); ALBUMIN/GLOBULIN RATIO 1.04 (1.00-1.93); ALKALINE PHOSPHATASE 41 U/L (45-117); ALT/SGPT 15 U/L (12-78); ANION GAP 9 MEQ/L (8-16); AST/SGOT 9 U/L (15-37); BILIRUBIN,TOTAL 0.5 MG/DL (0.2-1.0); BLOOD UREA NITROGEN 2 MG/DL (7-18); CALCIUM LEVEL 8.2 MG/DL (8.5-10.1); CARBON DIOXIDE LEVEL 24 MEQ/L (21-32); CHLORIDE LEVEL 107 MEQ/L (98-107); CREATININE FOR GFR 0.31 MG/DL (0.55-1.02); GLOMERULAR FILTRATION RATE > 60.0 (>60); GLUCOSE, FASTING 89 MG/DL (70-105); POTASSIUM SERUM 3.5 MEQ/L (3.5-5.1); SODIUM LEVEL 140 MEQ/L (136-145); TOTAL PROTEIN 5.3 GM/DL (6.4-8.2)
[2017-05-11] MEDS: PYRIDOXINE 50 MG TAB PO SCH ×3 (09:00→21:00)
[2017-05-11 14:34] VITALS: BP 122/56
[2017-05-11] MEDS: MULTIVITAMIN -ADULT INJECTION 10 ML, THIAMINE INJection 100 MG, FOLIC ACID 1 MG in NS 1... IV SCH (16:59)
[2017-05-11] MEDS ORDERED: KCL 10MEQ IN D5/0.45NS 1000ML 1,000 ML IV ONE (21:00)
[2017-05-11 22:00] VITALS: BP 112/73
[2017-05-12] MEDS ORDERED: KCL 10MEQ IN D5/0.45NS 1000ML 1,000 ML IV ONE
[2017-05-12] MEDS: D5W/LR 1,000 ML IV SCH ×4 (04:28→21:51)
[2017-05-12] MEDS: PROMETHAZINE 25 MG SUPP PR SCH ×2 (04:28→09:21)
[2017-05-12 06:00] VITALS: BP 109/61
[2017-05-12] MEDS: ONDANSETRON 4MG/2ML VIAL (J2405) IV SCH ×3 (06:19→19:55)
[2017-05-12 06:48] LABS: ALBUMIN 2.7 GM/DL (3.2-5.2); ALKALINE PHOSPHATASE 38 U/L (45-117); ALT/SGPT 35 U/L (12-78); ANION GAP 9 MEQ/L (8-16); AST/SGOT 25 U/L (15-37); BILIRUBIN,TOTAL 0.4 MG/DL (0.2-1.0); BLOOD UREA NITROGEN 1 MG/DL (7-18); CALCIUM LEVEL 8.3 MG/DL (8.5-10.1); CARBON DIOXIDE LEVEL 24 MEQ/L (21-32); CHLORIDE LEVEL 107 MEQ/L (98-107); CREATININE FOR GFR 0.29 MG/DL (0.55-1.02); GLOMERULAR FILTRATION RATE > 60.0 (>60); GLUCOSE, FASTING 91 MG/DL (70-105); POTASSIUM SERUM 3.3 MEQ/L (3.5-5.1); SODIUM LEVEL 140 MEQ/L (136-145); TOTAL PROTEIN 5.4 GM/DL (6.4-8.2)
[2017-05-12] MEDS: PYRIDOXINE 50 MG TAB PO SCH ×3 (07:40→21:08)
[2017-05-12] MEDS ORDERED: PANTOPRAZOLE 40MG INJ (PROTONIX) (C9113) IV SCH (09:00)
[2017-05-12] MEDS: PANTOPRAZOLE SODIUM IV SCH ×2 (09:22→21:20)
[2017-05-12] MEDS: SCOPOLAMINE 1.5 MG TRANSDERMAL TOP SCH (09:22)
[2017-05-12] MEDS: NS MINI IV SCH ×2 (09:22→21:20)
[2017-05-12 14:00] VITALS: BP 114/72
--- NOTE | 2017-05-12 15:17 | IPN ---
DATE: 05/12/2017 This lady is a hyperemesis gravidarum who is a significant risk for dehydration, electrolyte imbalance. She has failed Zofran. She has failed the rectal suppositories and Phenergan. She is now onto scopolamine patches and Protonix for her gastrointestinal (GI) upset and she is now presenting with ulcers in her mouth from continued emesis. She is also running IV fluids with vitamin B. She is unable to take to the B6 orally as she just throws it up. Presently today, her temperature is 99.0, pulse is 66, respirations are 20 and blood pressure is 109/61. Her hemoglobin is 13.8, hematocrit 39.6, and platelets are 239. Her chemistry today: Her anion gap is 9, it was down from 11. Her potassium was 3.3, it is still low, although she is receiving 10 mEq of potassium. All of her chemistries are low or within normal limits. Blood sugar is 91, blood urea nitrogen (BUN) is 1, sodium and chloride are within normal limits. Her urine is still showing 2+ ketones, still concentrated at 1.017 with a pH of 8. Our plan of management with her is to try the scopolamine patches, the Protonix, try to negotiate some kind of liquid for her or semisolid foods and continue on with our IV hydration. The patient's is leaving tomorrow but will be returning and the patient has a set of twins at home which she is concerned about for care. However, at the present time, she is not capable of looking after herself let alone the twins. In summary, we have a significantly dehydrated female with significant hyperemesis gravidarum, still uncontrolled. We spent 30 minutes talking to her about the new options of Protonix and scopolamine patches.
[2017-05-12] MEDS: PROMETHAZINE INJ 25 MG/ML VIAL (J2550) IM SCH ×2 (15:32→21:50)
[2017-05-12] MEDS: MULTIVITAMIN -ADULT INJECTION 10 ML, THIAMINE INJection 100 MG, FOLIC ACID 1 MG in NS 1... IV SCH (17:05)
[2017-05-12 22:41] VITALS: BP 100/55
[2017-05-12 23:49] LABS: ANION GAP 7 MEQ/L (8-16); BLOOD UREA NITROGEN 2 MG/DL (7-18); CALCIUM LEVEL 8.4 MG/DL (8.5-10.1); CARBON DIOXIDE LEVEL 23 MEQ/L (21-32); CHLORIDE LEVEL 111 MEQ/L (98-107); CREATININE FOR GFR 0.36 MG/DL (0.55-1.02); GLOMERULAR FILTRATION RATE > 60.0 (>60); GLUCOSE, FASTING 95 MG/DL (70-105); POTASSIUM SERUM 3.3 MEQ/L (3.5-5.1); SODIUM LEVEL 141 MEQ/L (136-145)
[2017-05-13] MEDS: ONDANSETRON 4MG/2ML VIAL (J2405) IV SCH ×4 (00:49→18:40)
[2017-05-13] MEDS: KCL 20MEQ IN D5/0.45NS 1000ML 1,000 ML IV SCH ×3 (00:49→16:53)
[2017-05-13] MEDS: PROMETHAZINE INJ 25 MG/ML VIAL (J2550) IM SCH (04:22)
[2017-05-13 05:42] VITALS: BP 107/71
[2017-05-13] MEDS: PYRIDOXINE 50 MG TAB PO SCH ×3 (08:27→21:00)
[2017-05-13] MEDS ORDERED: FLEET ENEMA PR ONE (08:30)
[2017-05-13] MEDS: PANTOPRAZOLE SODIUM IV SCH ×2 (08:48→21:44)
[2017-05-13] MEDS: NS MINI IV SCH ×2 (08:48→21:44)
[2017-05-13] MEDS: PROMETHAZINE INJ 25 MG/ML VIAL (J2550) IV SCH ×3 (09:30→22:29)
[2017-05-13 14:00] VITALS: BP 107/55
[2017-05-13] MEDS: MULTIVITAMIN -ADULT INJECTION 10 ML, THIAMINE INJection 100 MG, FOLIC ACID 1 MG in NS 1... IV SCH (16:54)
[2017-05-13 21:56] VITALS: BP 103/60
[2017-05-13] MEDS ORDERED: diphenhydrAMINE INJ 50MG/ML VIAL (J1200) IV ONE (22:00)
[2017-05-14] MEDS: KCL 20MEQ IN D5/0.45NS 1000ML 1,000 ML IV SCH ×3 (01:00→17:00)
[2017-05-14] MEDS: ONDANSETRON 4MG/2ML VIAL (J2405) IV SCH ×4 (01:43→18:34)
[2017-05-14 04:30] VITALS: BP 90/54
[2017-05-14] MEDS: PROMETHAZINE INJ 25 MG/ML VIAL (J2550) IV SCH ×4 (05:11→22:09)
[2017-05-14 06:07] VITALS: BP 88/53
[2017-05-14] MEDS: PYRIDOXINE 50 MG TAB PO SCH ×3 (09:00→21:00)
[2017-05-14] MEDS: NS MINI IV SCH ×2 (09:04→21:22)
[2017-05-14] MEDS: PANTOPRAZOLE SODIUM IV SCH ×2 (09:04→21:22)
[2017-05-14 14:01] VITALS: BP 102/59
[2017-05-14] MEDS: MULTIVITAMIN -ADULT INJECTION 10 ML, THIAMINE INJection 100 MG, FOLIC ACID 1 MG in NS 1... IV SCH (17:00)
[2017-05-14 17:58] VITALS: BP 98/63
[2017-05-14 22:10] VITALS: BP 99/56
[2017-05-15] MEDS: ONDANSETRON 4MG/2ML VIAL (J2405) IV SCH ×4 (00:55→18:50)
[2017-05-15] MEDS: KCL 20MEQ IN D5/0.45NS 1000ML 1,000 ML IV SCH ×4 (00:56→23:46)
[2017-05-15] MEDS: PROMETHAZINE INJ 25 MG/ML VIAL (J2550) IV SCH ×4 (04:40→22:26)
[2017-05-15 06:26] VITALS: BP 97/52
[2017-05-15] MEDS: PYRIDOXINE 50 MG TAB PO SCH ×3 (09:00→21:00)
[2017-05-15] MEDS: SCOPOLAMINE 1.5 MG TRANSDERMAL TOP SCH (09:23)
[2017-05-15] MEDS: PANTOPRAZOLE SODIUM IV SCH ×2 (09:24→21:15)
[2017-05-15] MEDS: NS MINI IV SCH ×2 (09:24→21:15)
[2017-05-15 12:08] LABS: MEAN CORPUSCULAR HEMOGLOBIN 30.9 pg (27.0-33.0); MEAN CORPUSCULAR HGB CONC 36.5 g/dl (32.0-36.5); MEAN CORPUSCULAR VOLUME 84.6 fl (80.0-96.0); RED CELL DISTRIBUTION WIDTH 12.2 % (11.5-14.5); WHITE BLOOD COUNT 8.4 K/mm3 (4.0-10.0)
[2017-05-15 13:24] LABS: ALBUMIN 2.9 GM/DL (3.2-5.2); ALBUMIN/GLOBULIN RATIO 0.94 (1.00-1.93); ALKALINE PHOSPHATASE 51 U/L (45-117); ALT/SGPT 43 U/L (12-78); ANION GAP 8 MEQ/L (8-16); AST/SGOT 24 U/L (15-37); BILIRUBIN,TOTAL 0.3 MG/DL (0.2-1.0); BLOOD UREA NITROGEN 3 MG/DL (7-18); CALCIUM LEVEL 8.6 MG/DL (8.5-10.1); CARBON DIOXIDE LEVEL 23 MEQ/L (21-32); CHLORIDE LEVEL 109 MEQ/L (98-107); CREATININE FOR GFR 0.37 MG/DL (0.55-1.02); GLOMERULAR FILTRATION RATE > 60.0 (>60); GLUCOSE, FASTING 111 MG/DL (70-105); MAGNESIUM LEVEL 2.1 MG/DL (1.8-2.4); PHOSPHORUS LEVEL 3.2 MG/DL (2.5-4.9); SODIUM LEVEL 140 MEQ/L (136-145)
[2017-05-15 16:34] VITALS: BP 140/61
[2017-05-15] MEDS: MULTIVITAMIN -ADULT INJECTION 10 ML, THIAMINE INJection 100 MG, FOLIC ACID 1 MG in NS 1... IV SCH (17:00)
[2017-05-15 22:00] VITALS: BP 95/54
[2017-05-16] MEDS: ONDANSETRON 4MG/2ML VIAL (J2405) IV SCH ×2 (01:51→07:00)
[2017-05-16] MEDS: PROMETHAZINE INJ 25 MG/ML VIAL (J2550) IV SCH ×4 (04:41→22:14)
[2017-05-16] MEDS: METOCLOPRAMIDE INJ 10MG/2ML VIAL (J2765) IV SCH ×3 (06:00→18:04)
[2017-05-16] MEDS: KCL 20MEQ IN D5/0.45NS 1000ML 1,000 ML IV SCH ×2 (07:01→17:00)
[2017-05-16] MEDS: PYRIDOXINE 50 MG TAB PO SCH ×3 (09:00→20:47)
[2017-05-16] MEDS: NS MINI IV SCH ×2 (09:56→21:11)
[2017-05-16] MEDS: PANTOPRAZOLE SODIUM IV SCH ×2 (09:56→21:11)
[2017-05-16] MEDS: MULTIVITAMIN -ADULT INJECTION 10 ML, THIAMINE INJection 100 MG, FOLIC ACID 1 MG in NS 1... IV SCH (17:00)
[2017-05-16 17:43] VITALS: BP 105/60
[2017-05-16 22:00] VITALS: BP 103/55
[2017-05-17] MEDS: KCL 20MEQ IN D5/0.45NS 1000ML 1,000 ML IV SCH ×2 (01:00→04:16)
[2017-05-17] MEDS: PROMETHAZINE INJ 25 MG/ML VIAL (J2550) IV SCH ×2 (04:35→10:00)
[2017-05-17 06:00] VITALS: BP 96/54
[2017-05-17] MEDS: METOCLOPRAMIDE INJ 10MG/2ML VIAL (J2765) IV SCH ×3 (06:21→12:00)
[2017-05-17] MEDS: PYRIDOXINE 50 MG TAB PO SCH ×3 (09:00→21:41)
[2017-05-17] MEDS: NS MINI IV SCH ×2 (09:00→21:41)
[2017-05-17] MEDS: PANTOPRAZOLE SODIUM IV SCH ×2 (09:00→21:41)
[2017-05-17 14:00] VITALS: BP 104/59
[2017-05-17] MEDS: PROMETHAZINE 25 MG TAB PO SCH ×2 (15:30→21:41)
[2017-05-17 16:00] VITALS: BP 116/59
[2017-05-17] MEDS: METOCLOPRAMIDE 5 MG TAB PO SCH (17:52)
[2017-05-17] MEDS: MULTIVITAMIN -ADULT INJECTION 10 ML, THIAMINE INJection 100 MG, FOLIC ACID 1 MG in NS 1... IV SCH (17:52)
[2017-05-17 20:00] VITALS: BP 111/59
[2017-05-18] VITALS: BP 96/55
[2017-05-18] MEDS: METOCLOPRAMIDE 5 MG TAB PO SCH ×3 (00:30→11:08)
[2017-05-18] MEDS: KCL 20MEQ IN D5/0.45NS 1000ML 1,000 ML IV SCH ×4 (00:51→21:09)
[2017-05-18] MEDS: ONDANSETRON 4 MG TAB (S0181) PO SCH ×3 (01:24→11:08)
[2017-05-18 08:00] VITALS: BP 99/58
[2017-05-18] MEDS: PYRIDOXINE 50 MG TAB PO SCH ×3 (08:25→21:00)
[2017-05-18] MEDS: PROMETHAZINE 25 MG TAB PO SCH (08:25)
[2017-05-18] MEDS: SCOPOLAMINE 1.5 MG TRANSDERMAL TOP SCH (08:26)
[2017-05-18] MEDS: PANTOPRAZOLE SODIUM IV SCH ×2 (08:26→21:09)
[2017-05-18] MEDS: NS MINI IV SCH ×2 (08:26→21:09)
--- NOTE | 2017-05-18 10:24 | IPN ---
DATE OF SERVICE: 05/17/2017 This lady has a longstanding history of hyperemesis gravidarum. She has been on Zofran, Phenergan suppositories, ondansetron, Reglan, Protonix. She has eventually gotten around to keeping some active fluids down and some actual food down. She is doing much better on her Reglan and her Protonix. She has actually had a walk in the cha, and she has had less emesis over the last 24-48 hours. She has maintained her weight with a loss of about one-half kg over the prolonged period of time. Her estimated calories were 4934-2275. She has been taking fluids. Her body mass index (BMI) is less than 19, although she has always been thin, and this was not basically an issue for her predelivery. Our plan of care at the present time is to maintain her on her Reglan, on her Phenergan suppositories when she goes home. We have discontinued the Zofran. She also has the scopolamine patch, which is working well for her. We have not forced the issue of taking the B6 because she says that it makes her nauseated, and she throws that up. The plan today is to continue with her progress with diet. She is ordering off the main menu. Continue with her Reglan, continue with her Phenergan, and continue with her scopolamine patches. The plan of discharge is for tomorrow morning. Hopefully, with the three medications on board and she does have good emotional support as her has been here all day, and there is positive improvement when he is around. In summary, we have a recalcitrant hyperemesis gravidarum slowly progressing with active medication on board; and actually, she is more anxious to go home now, as she is keeping some nutrition down. Her blood pressure today was 96/54, her respirations were 18, pulse is 75, temperature is 98.7. No laboratories were ordered today. The possibility of laboratories prior to discharge may be contemplated, and we are looking forward to her discharge tomorrow morning.
[2017-05-18 12:40] LABS: MEAN CORPUSCULAR HEMOGLOBIN 30.5 pg (27.0-33.0); MEAN CORPUSCULAR HGB CONC 35.4 g/dl (32.0-36.5); MEAN CORPUSCULAR VOLUME 86.1 fl (80.0-96.0); RED CELL DISTRIBUTION WIDTH 12.5 % (11.5-14.5); WHITE BLOOD COUNT 5.8 K/mm3 (4.0-10.0)
[2017-05-18 13:00] LABS: ALBUMIN 3.1 GM/DL (3.2-5.2); ALBUMIN/GLOBULIN RATIO 0.97 (1.00-1.93); ALKALINE PHOSPHATASE 65 U/L (45-117); ALT/SGPT 30 U/L (12-78); ANION GAP 7 MEQ/L (8-16); AST/SGOT 7 U/L (15-37); BILIRUBIN,TOTAL 0.2 MG/DL (0.2-1.0); BLOOD UREA NITROGEN 1 MG/DL (7-18); CALCIUM LEVEL 8.6 MG/DL (8.5-10.1); CARBON DIOXIDE LEVEL 26 MEQ/L (21-32); CHLORIDE LEVEL 106 MEQ/L (98-107); CREATININE FOR GFR 0.35 MG/DL (0.55-1.02); GLOMERULAR FILTRATION RATE > 60.0 (>60); GLUCOSE, FASTING 94 MG/DL (70-105); MAGNESIUM LEVEL 1.9 MG/DL (1.8-2.4); PHOSPHORUS LEVEL 2.8 MG/DL (2.5-4.9); POTASSIUM SERUM 3.8 MEQ/L (3.5-5.1); SODIUM LEVEL 139 MEQ/L (136-145); TOTAL PROTEIN 6.3 GM/DL (6.4-8.2)
[2017-05-18] MEDS: PROMETHAZINE INJ 25 MG/ML VIAL (J2550) IV SCH ×2 (15:51→21:55)
[2017-05-18 16:00] VITALS: BP 117/68
[2017-05-18] MEDS: MULTIVITAMIN -ADULT INJECTION 10 ML, THIAMINE INJection 100 MG, FOLIC ACID 1 MG in NS 1... IV SCH (16:40)
[2017-05-18] MEDS ORDERED: ACETAMINOPHEN 500 MG TAB PO PRN (19:00)
[2017-05-18] MEDS: METOCLOPRAMIDE INJ 10MG/2ML VIAL (J2765) IV SCH ×2 (19:03→23:58)
[2017-05-18 20:00] VITALS: BP 108/58
[2017-05-19] VITALS: BP 97/52
[2017-05-19] MEDS: PROMETHAZINE INJ 25 MG/ML VIAL (J2550) IV SCH ×4 (03:55→21:35)
[2017-05-19] MEDS: KCL 20MEQ IN D5/0.45NS 1000ML 1,000 ML IV SCH ×3 (03:56→20:47)
[2017-05-19] MEDS: METOCLOPRAMIDE INJ 10MG/2ML VIAL (J2765) IV SCH ×3 (06:33→18:37)
[2017-05-19 08:27] VITALS: BP 95/65
[2017-05-19] MEDS: PYRIDOXINE 50 MG TAB PO SCH ×3 (09:05→20:48)
[2017-05-19] MEDS: NS MINI IV SCH ×2 (10:18→20:47)
[2017-05-19] MEDS: PANTOPRAZOLE SODIUM IV SCH ×2 (10:18→20:47)
[2017-05-19 16:00] VITALS: BP 109/54
[2017-05-19] MEDS: MULTIVITAMIN -ADULT INJECTION 10 ML, THIAMINE INJection 100 MG, FOLIC ACID 1 MG in NS 1... IV SCH (17:00)
[2017-05-19] MEDS ORDERED: FLEET OIL RETENTION ENEMA PR PRN (18:45)
[2017-05-19 20:00] VITALS: BP 101/59
[2017-05-20 00:15] VITALS: BP 100/56
[2017-05-20] MEDS: METOCLOPRAMIDE INJ 10MG/2ML VIAL (J2765) IV SCH ×3 (00:58→11:35)
[2017-05-20] MEDS: PROMETHAZINE INJ 25 MG/ML VIAL (J2550) IV SCH ×4 (03:07→20:45)
[2017-05-20] MEDS: KCL 20MEQ IN D5/0.45NS 1000ML 1,000 ML IV SCH ×3 (04:53→13:23)
[2017-05-20 08:15] VITALS: BP 98/55
[2017-05-20] MEDS: PYRIDOXINE 50 MG TAB PO SCH ×3 (08:47→20:14)
[2017-05-20] MEDS: NS MINI IV SCH (10:00)
[2017-05-20] MEDS: PANTOPRAZOLE SODIUM IV SCH (10:00)
[2017-05-20 16:00] VITALS: BP 108/64
[2017-05-20] MEDS ORDERED: LR 1,000 ML IV SCH (16:00)
[2017-05-20] MEDS: MULTIVITAMIN -ADULT INJECTION 10 ML, THIAMINE INJection 100 MG, FOLIC ACID 1 MG in NS 1... IV SCH (16:57)
[2017-05-20] MEDS ORDERED: diphenhydrAMINE INJ 50MG/ML VIAL (J1200) IV PRN (17:15)
[2017-05-20] MEDS ORDERED: ONDANSETRON 4MG/2ML VIAL (J2405) IV SCH (18:00)
[2017-05-20 21:19] VITALS: BP 125/81
[2017-05-20] MEDS: ONDANSETRON 4 MG TAB (S0181) PO SCH (23:15)
[2017-05-21 00:06] VITALS: BP 121/68
[2017-05-21] MEDS: ONDANSETRON 4 MG TAB (S0181) PO SCH ×2 (06:02→12:03)
[2017-05-21 08:00] VITALS: BP 96/54
[2017-05-21] MEDS: PYRIDOXINE 50 MG TAB PO SCH ×2 (08:42→16:00)
[2017-05-21] MEDS: PROMETHAZINE 25 MG SUPP PR SCH ×3 (08:42→16:15)
[2017-05-21] MEDS: SCOPOLAMINE 1.5 MG TRANSDERMAL TOP SCH (08:43)
[2017-05-21] MEDS ORDERED: PANTOPRAZOLE 20 MG TAB PO SCH (09:00)
[2017-05-21] MEDS ORDERED: PRENATAL VITAMINS CHEWABLE TABLET PO SCH (09:00)
[2017-05-21 16:00] VITALS: BP 105/60
[2017-05-21] MEDS ORDERED: TRAN1.5D2 TOP (16:21)
[2017-05-21] MEDS ORDERED: PROT20TA11 PO (16:22)
[2017-05-21] MEDS ORDERED: PHEN1SUP6 PR (16:23)
--- NOTE | 2017-05-21 16:47 | DSES ---
DATE OF ADMISSION: 05/09/2017 DATE OF DISCHARGE: This lady is a 32-year-old 4, para 1, abortus 2, TPALG, under the T0, under the P2, under the A2, under the L2, under the G4, who was admitted under this practice 05/09/2017, discharged 05/21/2017, was admitted previously under another practice for 3 days and discharged. She has a history of severe hyperemesis gravidarum, dehydration, electrolyte imbalance. Her previous history is that she had a section for twin gestation. She is to a full-time soldier. She has good home support. Her mother is here to look after the twins. The patient had been in various stages of electrolyte imbalance throughout her stay, however, after correcting those and using various antiemetics, she did not get any better and did not tolerate the antiemetics and she had a variable up and down course regarding her nutritional status. We are now 12 days post admission. She is no better, although she is electrolyte stable, chemistry stable, urine stable and the decision is to either go home on the antiemetics as prescribed or stay and have PPN in order to enhance nutrition. Her weight was 41.8 kg. She was 43 kg before. She has been on Phenergan suppositories, Reglan, Zofran, diclegis, scopolamine patches and Protonix and none of this seems to work for her. On discharge today, her hemoglobin 11.3, hematocrit 32.0, platelets 217. Her electrolytes and her BMP is normal. Her anion gap is 7. Urine is 1.004, pH 6, negative negative, negative. She is afebrile at 99.1, pulse 78, respirations 16, and blood pressure is 96/54. We discussed a plan of management at home including the use of Phenergan suppositories which she thinks works better than any of the others and protein either in the form of oral liquids or in solid. She recommended she is going to eat meat at home and that is just as good as any. The rest of the examination is unremarkable. She is 8 weeks 7 days today. She is normocephalic, atraumatic. Neck full range of motions. Pupils equal and reactive to light. Her distal pulses are symmetric. No evidence of DVT, PE or superficial phlebitis. Chest is clear bilaterally to bases. No wheezes or rhonchi. No CVA tenderness. The abdomen is soft. Bowel sounds are present. She has no rashes, lesions or pruritus. Her mucosal membranes are moist. No arthralgia or myalgia. No complaints of cough, wheezes, shortness of breath or dyspnea on exertion. No chest pain. Not bleeding. Neurologically complete. No incontinence, urgency or frequency. No nausea, vomiting, diarrhea or constipation. Surgical history is section. Family history noncontributory. She does not smoke, drink, or abuse drugs. 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 The patient was given the options of PPN or home and the patient said that she would feel more comfortable being at home and dealing with the of occasional nausea and vomiting and using her Phenergan suppositories which seems to her works the best. She was discharged with instructions to call the office to make an appointment for OB registration. She has already had her dating ultrasound and number was given as well as the contact people. The patient was discharged undelivered. We had a conversation separately with and then the and the patient together. The patient was discharged undelivered. We spent 1 hour discussing all the options.
== END 2017-05-21 16:45 | disposition home or self-care (01) | DRG 781 ==
LOC: M OBS 15:21 → M PED 05-17 16:16
PROVIDERS: ADMIT Obstetrics & Gynecology; ATTEND Obstetrics & Gynecology
DX: O21.1 Hyperemesis gravidarum with metabolic disturbance (principal); Z3A.01 Less than 8 weeks gestation of pregnancy; O34.211 Maternal care for low transverse scar from previous cesarean delivery

== ENCOUNTER 2017-08-28 10:20 | Emergency (ER) | payer OTHER ==
[~2017-08-28] VITALS: Ht 157.5 cm; Wt 52.7 kg
[~2017-08-28 10:20] MED LIST changes: +PROT20TA11 PO; +TRAN1.5D2 TOP
[2017-08-28] MEDS ORDERED: ASPI81TA85 PO (10:34)
[2017-08-28] MEDS ORDERED: NS 1,000 ML IV ONE (13:15)
[2017-08-28 13:35] LABS: BASO % 0.2 % (0.0-1.0); EOS % 0.2 % (0.0-3.0); IMMATURE GRANULOCYTE % 1.5 % (0-0); LYMPH # 1.7 10^3/uL (1.5-4.5); MEAN CORPUSCULAR HEMOGLOBIN 29.2 pg (27.0-33.0); MEAN CORPUSCULAR HGB CONC 33.6 g/dl (32.0-36.5); MEAN CORPUSCULAR VOLUME 86.9 fl (80.0-96.0); MONO # 0.6 10^3/uL (0.0-0.8); MONO % 6.1 % (0.0-5.0); NEUTROPHILS # 7.1 10^3/uL (1.8-7.7); PLATELET COUNT, AUTOMATED 198 10^3/uL (150-450); RED CELL DISTRIBUTION WIDTH 12.4 % (11.5-14.5); WHITE BLOOD COUNT 9.6 10^3/uL (4.0-10.0)
[2017-08-28 14:03] LABS: ALBUMIN 2.6 GM/DL (3.2-5.2); ALBUMIN/GLOBULIN RATIO 0.72 (1.00-1.93); ALKALINE PHOSPHATASE 60 U/L (45-117); ALT/SGPT 10 U/L (12-78); ANION GAP 7 MEQ/L (8-16); AST/SGOT 12 U/L (7-37); BILIRUBIN,DIRECT < 0.1 MG/DL (0.0-0.2); BILIRUBIN,TOTAL 0.3 MG/DL (0.2-1.0); BLOOD UREA NITROGEN 5 MG/DL (7-18); CALCIUM LEVEL 8.5 MG/DL (8.5-10.1); CARBON DIOXIDE LEVEL 23 MEQ/L (21-32); CHLORIDE LEVEL 110 MEQ/L (98-107); GLOMERULAR FILTRATION RATE > 60.0 (>60); GLUCOSE, FASTING 78 MG/DL (70-105); MAGNESIUM LEVEL 1.9 MG/DL (1.8-2.4); POTASSIUM SERUM 3.9 MEQ/L (3.5-5.1); SODIUM LEVEL 140 MEQ/L (136-145); TOTAL PROTEIN 6.2 GM/DL (6.4-8.2)
--- NOTE | 2017-08-28 14:23 | ECGEPIP ---
Stationary ECG Study [facility] - ED Test Date: 2017-08-28 Pat Name: ANATOLY ART Department: Room: - Gender: F Wall And Floor Tiler: renee : [phone] Requested By: DARRICK Kenny Order Number: [id number] Reading MD: Xochitl King Measurements Intervals [place] Rate: 75 P: 28 AL: 157 QRS: 52 QRSD: 87 T: 28 QT: 343 QTc: 385 Interpretive Statements SINUS RHYTHM NO PRIOR FOR COMPARISON Electronically Signed On 08-28-2017 14:23:24 EST by Xochitl King
[2017-08-28 15:20] VITALS: BP 104/70
== END 2017-08-28 16:18 | disposition home or self-care (01) ==
LOC: M ED 10:20
DX: O21.0 Mild hyperemesis gravidarum (principal); Z3A.24 24 weeks gestation of pregnancy; Z87.59 Personal history of other complications of pregnancy, childbirth and the puerperium; Z79.899 Other long term (current) drug therapy; Z88.8 Allergy status to other drugs, medicaments and biological substances; Z91.011 Allergy to milk products; Z91.018 Allergy to other foods

== ENCOUNTER 2017-11-22 11:33 | Emergency (ER) | payer OTHER ==
[2017-11-22] MEDS: NS 1,000 ML IV (11:45)
[2017-11-22] MEDS: LR 1,000 ML IV (11:52)
[2017-11-22 12:42] LABS: BASO % 0.3 % (0.0-1.0); EOS # 0.1 10^3/uL (0.0-0.50); EOS % 0.4 % (0.0-3.0); HEMATOCRIT 28.7 % (36.0-47.0); HEMOGLOBIN 8.6 g/dl (12.0-16.0); IMMATURE GRANULOCYTE % 1.3 % (0-3.0); LYMPH # 2.4 10^3/uL (1.5-4.5); LYMPH % 21.4 % (24.0-44.0); MEAN CORPUSCULAR HEMOGLOBIN 22.5 pg (27.0-33.0); MEAN CORPUSCULAR VOLUME 75.1 fl (80.0-96.0); MONO # 0.7 10^3/uL (0.0-0.8); MONO % 6.1 % (0.0-5.0); NEUTROPHILS # 7.9 10^3/uL (1.8-7.7); NEUTROPHILS % 70.5 % (36.0-66.0); PLATELET COUNT, AUTOMATED 192 10^3/uL (150-450); RED BLOOD COUNT 3.82 10^6/uL (4.00-5.40); RED CELL DISTRIBUTION WIDTH 15.9 % (11.5-14.5); WHITE BLOOD COUNT 11.1 10^3/uL (4.0-10.0)
[2017-11-22 13:05] LABS: KETONE, URINE AUTO RFX TRACE mg/dL (NEGATIVE); LEUKOCYTE ESTERASE UR AUTO RFX 1+ (NEGATIVE); MUCUS, URINE RFX SMALL (NEGATIVE); NITRITE, URINE AUTO RFX NEGATIVE (NEGATIVE); RBC, URINE AUTO RFX 1 /HPF (0-3); SPECIFIC GRAVITY UR AUTO RFX 1.021 (1.002-1.035); SQUAM EPITHELIAL CELL UR AURFX 13 /HPF (0-6); WBC, URINE AUTO RFX 9 /HPF (0-3)
[2017-11-22 13:13] LABS: ALBUMIN 2.5 GM/DL (3.2-5.2); ALBUMIN/GLOBULIN RATIO 0.76 (1.00-1.93); ALKALINE PHOSPHATASE 161 U/L (45-117); ALT/SGPT 9 U/L (12-78); ANION GAP 9 MEQ/L (8-16); AST/SGOT 18 U/L (7-37); BILIRUBIN,DIRECT < 0.1 MG/DL (0.0-0.2); BILIRUBIN,TOTAL 0.3 MG/DL (0.2-1.0); BLOOD UREA NITROGEN 9 MG/DL (7-18); CARBON DIOXIDE LEVEL 23 MEQ/L (21-32); CHLORIDE LEVEL 106 MEQ/L (98-107); CREATININE FOR GFR 0.45 MG/DL (0.55-1.30); GLOMERULAR FILTRATION RATE > 60.0 (>60); GLUCOSE, FASTING 89 MG/DL (70-100); MAGNESIUM LEVEL 1.8 MG/DL (1.8-2.4); POTASSIUM SERUM 3.9 MEQ/L (3.5-5.1); SODIUM LEVEL 138 MEQ/L (136-145); TOTAL PROTEIN 5.8 GM/DL (6.4-8.2)
[2017-11-22 13:38] LABS: AMPHETAMINES LEVEL URINE NEGATIVE (NEGATIVE); BARBITURATES URINE NEGATIVE (NEGATIVE); BENZODIAZEPINES URINE NEGATIVE (NEGATIVE); CANNABINOIDS URINE NEGATIVE (NEGATIVE); COCAINE METABOLITE URINE NEGATIVE (NEGATIVE); METHADONE URINE NEGATIVE (NEGATIVE); OPIATES URINE NEGATIVE (NEGATIVE); PHENCYCLIDINE URINE NEGATIVE (NEGATIVE)
== END 2017-11-22 12:49 | disposition admitted as inpatient to this hospital (09) ==
LOC: M ED 11:33
DX: O99.89 Other specified diseases and conditions complicating pregnancy, childbirth and the puerperium (principal); R42 Dizziness and giddiness; Z3A.37 37 weeks gestation of pregnancy; E11.9 Type 2 diabetes mellitus without complications; Z91.011 Allergy to milk products; Z91.19 Patient's noncompliance with other medical treatment and regimen; Z88.8 Allergy status to other drugs, medicaments and biological substances; Z91.018 Allergy to other foods
CPT/HCPCS: 93005

== ENCOUNTER 2017-11-22 12:52 | Outpatient (CLI) | payer OTHER | END 2017-11-22 14:40 | disposition home or self-care (01) | LOC: M LDO 12:52 | DX: O99.89 Other specified diseases and conditions complicating pregnancy, childbirth and the puerperium (principal); Z3A.36 36 weeks gestation of pregnancy; R53.1 Weakness | CPT/HCPCS: 59025 ==

== ENCOUNTER 2017-12-16 07:35 | Inpatient (IN) | payer OTHER ==
[2017-12-16 08:43] LABS: HEMATOCRIT 34.6 % (36.0-47.0); HEMOGLOBIN 10.7 g/dl (12.0-16.0); MEAN CORPUSCULAR HEMOGLOBIN 24.5 pg (27.0-33.0); MEAN CORPUSCULAR HGB CONC 30.9 g/dl (32.0-36.5); MEAN CORPUSCULAR VOLUME 79.2 fl (80.0-96.0); PLATELET COUNT, AUTOMATED 192 10^3/uL (150-450); RED BLOOD COUNT 4.37 10^6/uL (4.00-5.40); RED CELL DISTRIBUTION WIDTH 25.2 % (11.5-14.5); WHITE BLOOD COUNT 8.7 10^3/uL (4.0-10.0)
[2017-12-16] MEDS ORDERED: MORPHINE PRES-FREE INJ 10 MG/10 ML VIAL (J2274) As Ordered (09:12)
[2017-12-16] MEDS ORDERED: OXYTOCIN INJ 10 UNITS/ML VIAL (J2590) As Ordered ×2 (09:12)
[2017-12-16] MEDS: BICITRA 30ML SOLN UDC PO (09:40)
[2017-12-16] MEDS ORDERED: NALOXONE INJ 0.4 MG/1 ML VIAL (J2310) IV ×2 (09:51)
[2017-12-16] MEDS ORDERED: NALBUPHINE HCL 10 MG/ML AMP (J2300) IV ×2 (09:51→11:30)
[2017-12-16] MEDS ORDERED: METOCLOPRAMIDE INJ 10MG/2ML VIAL (J2765) IV (09:51)
[2017-12-16] MEDS ORDERED: ePHEDrine SULFATE 25 MG/5 ML(5MG/ML) SYRINGE As Ordered (09:53)
[2017-12-16] MEDS ORDERED: PHENYLephrine HCL 500 MCG/5 ML (100MCG/ML) SYRINGE (J2370) As Ordered (10:05)
[2017-12-16] MEDS ORDERED: PERCOCET 5MG/325MG TAB PO ×2 (11:15)
[2017-12-16] MEDS ORDERED: KETOROLAC 30 MG/ML VIAL (J1885) IV (11:30)
[2017-12-16] MEDS ORDERED: MEPERIDINE INJ 25 MG/ML VIAL (J2175) IV (11:30)
[2017-12-16] MEDS ORDERED: ONDANSETRON 4MG/2ML VIAL (J2405) IV (11:30)
[2017-12-16] MEDS ORDERED: fentaNYL 100 MCG/2 ML INJECTION (J3010) IV (11:30)
[2017-12-16] MEDS: PROMETHAZINE 25 MG TAB PO ×2 (13:22→19:47)
[2017-12-16] MEDS: KETOROLAC 30 MG/ML VIAL (J1885) IV ×2 (13:29→19:21)
[2017-12-16] MEDS: ONDANSETRON 4MG/2ML VIAL (J2405) IV ×2 (16:51→23:00)
[2017-12-16] MEDS: LR 1,000 ML IV ×2 (18:38→19:21)
[2017-12-16] MEDS: PRENATAL VITAMINS CHEWABLE TABLET PO (19:13)
[2017-12-16] MEDS: DOCUSATE SODIUM 100 MG CAP PO (19:31)
[2017-12-17] MEDS: KETOROLAC 30 MG/ML VIAL (J1885) IV ×2 (01:26→06:34)
[2017-12-17] MEDS: LR 1,000 ML IV (03:10)
[2017-12-17] MEDS: MEASLES,MUMPS,RUBELLA VACCINE INJ (MMR-II) (90707) SC (06:03)
[2017-12-17] MEDS: RHOGAM 300 MCG (1500 IU) INJ (J2790) IM (06:03)
[2017-12-17] MEDS: ONDANSETRON 4MG/2ML VIAL (J2405) IV (06:34)
[2017-12-17 06:38] LABS: HEMATOCRIT 34.1 % (36.0-47.0); HEMOGLOBIN 10.3 g/dl (12.0-16.0); MEAN CORPUSCULAR HEMOGLOBIN 24.3 pg (27.0-33.0); MEAN CORPUSCULAR HGB CONC 30.2 g/dl (32.0-36.5); MEAN CORPUSCULAR VOLUME 80.4 fl (80.0-96.0); PLATELET COUNT, AUTOMATED 179 10^3/uL (150-450); RED BLOOD COUNT 4.24 10^6/uL (4.00-5.40); RED CELL DISTRIBUTION WIDTH 25.4 % (11.5-14.5); WHITE BLOOD COUNT 11.2 10^3/uL (4.0-10.0)
[2017-12-17] MEDS: DOCUSATE SODIUM 100 MG CAP PO ×2 (09:10→19:19)
[2017-12-17] MEDS: PRENATAL VITAMINS CHEWABLE TABLET PO (09:10)
[2017-12-17] MEDS ORDERED: ONDANSETRON 4MG/2ML VIAL (J2405) As Ordered (12:09)
[2017-12-17] MEDS: PROMETHAZINE 25 MG TAB PO ×2 (12:26→19:20)
[2017-12-17] MEDS: IBUPROFEN 800 MG TAB PO ×2 (16:04→23:09)
[2017-12-18] MEDS: IBUPROFEN 800 MG TAB PO (06:46)
[2017-12-18] MEDS: DOCUSATE SODIUM 100 MG CAP PO (08:29)
[2017-12-18] MEDS: PRENATAL VITAMINS CHEWABLE TABLET PO (08:29)
== END 2017-12-18 13:30 | disposition home or self-care (01) | DRG 766 ==
LOC: M LDI 07:35 → M OBS 12:34
PROVIDERS: Obstetrics & Gynecology
PROC: 10D00Z1 Extraction of Products of Conception, Low, Open Approach (ICD-10-PCS; principal; 2017-12-16 09:30)
PROC: 0UB70ZZ Excision of Bilateral Fallopian Tubes, Open Approach (ICD-10-PCS; 2017-12-16 09:30)
DX: O34.211 Maternal care for low transverse scar from previous cesarean delivery (principal); Z37.0 Single live birth; Z30.2 Encounter for sterilization; Z88.8 Allergy status to other drugs, medicaments and biological substances; E73.9 Lactose intolerance, unspecified; O99.284 Endocrine, nutritional and metabolic diseases complicating childbirth; Z3A.39 39 weeks gestation of pregnancy

== ENCOUNTER → 2019-02-08 | Outpatient (REF) | payer OTHER ==
[~2019-02-08] MED LIST changes: +ADVI200C5 PO; +ASPI81TA85 PO; +COLA100C5 PO; +FERR1TAB8; +OXYC1TAB23 PO; +PRENTAB9 PO; -PROM25TA PO; +PROM25TA12 PO; -PYRI25TA3 PO; +PYRI25TA4 PO; +SCOP1PAT2 TOP; -TRAN1.5D2 TOP; +ZOFR4TAB14 PO; -ZOFR4TAB3 PO
== END ==
LOC: M SFHCLERA 12:37
PROVIDERS: ATTEND Nurse Practitioner Family
DX: R68.89 Other general symptoms and signs (principal)

== ENCOUNTER → 2019-04-20 | Outpatient (REF) | payer OTHER ==
[2019-04-20 22:46] LABS: CHLAMYDIA DNA AMPLIFICATION NEGATIVE (NEGATIVE); GC DNA AMPLIFICATION NEGATIVE (NEGATIVE)
== END ==
LOC: M SFHCLERA 10:16
PROVIDERS: ATTEND Nurse Practitioner Family
DX: R30.0 Dysuria (principal)

== ENCOUNTER → 2019-06-09 | Outpatient (REF) | payer OTHER | LOC: M SFHCLERA 14:44 | PROVIDERS: ATTEND Physician Assistant | DX: J02.9 Acute pharyngitis, unspecified (principal) ==